=== PATIENT | female | born 1990 | race Caucasian/White ===

== ENCOUNTER 2021-12-19 19:52 | Emergency (ER) | payer BC ==
[~2021-12-19] VITALS: Ht 162.6 cm; Wt 96.2 kg
[2021-12-19] MEDS ORDERED: CYCL10TA19 PO (22:13)
--- NOTE | 2021-12-19 22:14 | PHYS DOC ---
Past History Past Surgical History: No Surgical History Alcohol Use: Rarely General Adult EDM: Chief Complaint: LOWER BACK PAIN OR INJURY HPI: HPI: Patient is a 31-year-old female presents with low back pain that radiates into her left hip and down her left buttocks. Patient states that symptoms started earlier today. Range of motion is still intact. Pain is worse with ambulation. Denies numbness and tingling to upper thighs. Loss of bowel or urinary retention. Has history of chronic back pain and back surgeries. Denies taking anything for pain prior to arrival. Denies other medical history. Review of Systems: Review of Systems: ROS At least 10 ROS systems have been reviewed and are negative except as documented in the HPI. General: Negative except as outlined in HPI above. Skin: Negative except as outlined in HPI above. HEENT: Negative except as outlined in HPI above. Neck: Negative except as outlined in HPI above. Respiratory: Negative except as outlined in HPI above.. Cardiovascular: Negative except as outlined in HPI above. Abdomen: Negative except as outlined in HPI above. : Negative except as outlined in HPI above. Back/MSK: Negative except as outlined in HPI above. Neuro: Negative except as outlined in HPI above. Psych: Negative except as outlined in HPI above. Current Medications: Current Meds: Current Medications Medications (Trade) Dose Ordered Sig/Elsy Start Time Stop Time Status Last Admin Dose Admin Ketorolac Tromethamine (Toradol Im) 60 mg 1X ONCE 12/19/21 22:30 12/19/21 22:31 12/19/21 21:58 60 MG Orphenadrine Citrate (Norflex) 60 mg 1X ONCE 12/19/21 22:30 12/19/21 22:31 12/19/21 21:57 60 MG Allergies: Allergies: Allergies Coded Allergies Type Severity Reaction Last Updated Verified No Known Drug Allergies 12/19/21 No Physical Exam: PE: Constitutional: Well developed, well nourished, no acute distress, non-toxic appearance. [] HENT: Normocephalic, atraumatic, bilateral external ears normal, oropharynx moist, no oral exudates, nose normal. [] Eyes: PERRLA, EOMI, conjunctiva normal, no discharge. [] Neck: Normal range of motion, no tenderness, supple, no stridor. [] Cardiovascular:Heart rate regular rhythm, no murmur [] Lungs & Thorax: Bilateral breath sounds clear to auscultation [] Abdomen: Bowel sounds normal, soft, no tenderness, no masses, no pulsatile masses. [] Skin: Warm, dry, no erythema, no rash. [] Back: Left-sided lower tenderness, no CVA tenderness. [] Extremities: No tenderness, left buttocks, range of motion is intact Neurologic: Alert and oriented X 3, normal motor function, normal sensory function, no focal deficits noted. [] Psychologic: Affect normal, judgement normal, mood normal. [] Current Patient Data: Vital Signs: Vital Signs Date Time Temp Pulse Resp B/P (MAP) Pulse Ox O2 Delivery O2 Flow Rate FiO2 12/19/21 20:16 98.5 65 18 151/68 (95) 96 Room Air EKG: EKG: [] Radiology/Procedures: Radiology/Procedures: [] Heart Score: C/O Chest Pain: No Risk Factors: Risk Factors: DM, Current or recent (<one month) smoker, HTN, HLP, family history of CAD, obesity. Risk Scores: Score 0 - 3: 2.5% MACE over next 6 weeks - Discharge Home Score 4 - 6: 20.3% MACE over next 6 weeks - Admit for Clinical Observation Score 7 - 10: 72.7% MACE over next 6 weeks - Early Invasive Strategies Course & Med Decision Making: Course & Med Decision Making Pertinent Labs and Imaging studies reviewed. (See chart for details) [] 31-year-old female presents with low back pain that radiates into her left buttocks. Patient has a history of chronic back pain and has had back surgeries. Denies taking anything prior to arrival. Denies urinary retention or loss of bowel. No saddle anesthesia. Patient given IM Toradol and Norflex to help with symptoms. Patient was angry that she was not able to get an MRI. I did offer patient imaging of her lower back, which patient refused. Advised patient she most likely has sciatic nerve pain. Patient should take ibuprofen at home. Sent patient home with a prescription for Flexeril as well. If pain does not resolve follow-up with PCP for possible imaging and physical therapy. Discussed return precautions in length with patient. Patient was upset on discharge, patient said she would follow-up with her doctor. Patient is hemodynamically stable and ambulating on her own. Dragon Disclaimer: Rodríguez Disclaimer: This electronic medical record was generated, in whole or in part, using a voice recognition dictation system. Departure Departure: Impression: Primary Impression: Low back pain Qualified Codes: M54.42 - Lumbago with sciatica, left side Additional Impression: Hip pain, left Referrals: NON,STAFF (PCP) Patient Instructions: Sciatica, [id number] Additional Instructions: You were seen in the emergency room for complaints of low back pain, left-sided hip pain, and sciatica. You were given Toradol and Norflex to help with pain. Continue taking ibuprofen at home for discomfort along with muscle relaxer. The muscle relaxer you are taking at home can make you very sleepy. Do not drive on this medication. If your pain does not improve, please follow-up with your PCP on Tuesday for further management. If pain or symptoms worsen, please return to the emergency room. EMERGENCY DEPARTMENT GENERAL DISCHARGE INSTRUCTIONS Thank you for coming to [facility] (ED) today and trusting us with you care. We trust that you had a positivie experience in our Emergency Department. If you wish to speak to the department management, you may call the director at [phone]. YOUR FOLLOW UP INSTRUCTIONS ARE FOLLOWS: 1. Do you have a private Doctor? If you do not have a private doctor, please ask for a resource list of physicians or clinics that may be able to assist you with follow up care. 2. The Emergency Physician has interpreted your x-rays. The X-Ray specialist will also review them. If there is a change in the findings, you will be notified in 48 hours when at all possible. 3. A lab test or culture has been done, your results will be reviewed and you will be notified if you need a change in treatment. ADDITIONAL INSTRUCTIONS AND INFORMATION: 1. Your care today has been supervised by a physician who is specially trained in emergency care. Many problems require more than one evaluation for a complete diagnosis and treatment. We recommend that you schedule your follow up appointment as recommended to ensure complete treatment of you illness or injury. If you are unable to obtain follow up care and continue to have a problem, or if your condition worsens, we recommend that you return to the ED. 2. We are not able to safely determine your condition over the phone nor are we able to give sound medical advice over the phone. For these safety reasons, if you call for medical advice we will ask you to come to the ED for further evaluation. 3. If you have any questions regarding these discharge instructions please call the ED at [phone]. SAFETY INFORMATION: In the interest of safety, wellness, and injury prevention; we encourage you to wear your sealbelt, if you smoke; quite smoking, and we encourage family to use a protective helmet for bicycling and other sporting events that present an increased risk for head injury. IF YOUR SYMPTOMS WORSEN OR NEW SYMPTOMS DEVELOP, OR YOU HAVE CONCERNS ABOUT YOUR CONDITION; OR IF YOUR CONDITION WORSENS WHILE YOU ARE WAITING FOR YOUR FOLLOW UP APPOINTMENT; EITHER CONTACT YOUR PRIMARY CARE DOCTOR, THE PHYSICIAN WHOSE NAME AND NUMBER YOU WERE GIVEN, OR RETURN TO THE ED IMMEDIATELY. Scripts Cyclobenzaprine Hcl (CYCLOBENZAPRINE HCL) 10 Mg Tablet 1 TAB PO TID for PAIN for 7 Days, #21 TAB Prov: CECI MORTON APRN 12/19/21 CECI MORTON APRN Dec 19, 2021 22:14
[2021-12-19 22:21] VITALS: BP 139/98
[2021-12-19] MEDS ORDERED: ORPHENADRINE CITRATE 60 MG/2 ML VIAL. IM ONE (22:30)
[2021-12-19] MEDS ORDERED: KETOROLAC 60 MG/2 ML VIAL. IM ONE (22:30)
== END 2021-12-19 22:21 | disposition home or self-care (01) ==
LOC: ER 19:52
DX: M54.42 Lumbago with sciatica, left side (principal); M25.552 Pain in left hip
CPT/HCPCS: 96372; 99284; J1885; J2360